=== PATIENT | male | born 1990 | race Caucasian/White ===

== ENCOUNTER 2017-11-13 06:55 | Day surgery (SDC) | payer BC ==
[~2017-11-13] VITALS: Ht 182.9 cm; Wt 79.4 kg
[~2017-11-13 06:55] MED LIST: ADDERALL 20 MG20 MG PO; CIPRO500 MG PO; CLINDAMYCIN HC300 MG PO; GABAPENTIN600 MG PO; KEFLEX250 MG PO; LEXAPRO20 MG PO; NORCO 5-325 TA1 EACH PO; PERCOCET 5-3251 EACH PO; RITALIN5 MG PO; TRAMADOL HCL50 MG PO
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
--- NOTE | 2017-11-19 13:25 | OR ---
[facility] [address], [place] [address] Signed DATE OF OPERATION: 11/13/2017 SURGEON: Michael Orellana MD PREOPERATIVE DIAGNOSIS: Displaced fracture, proximal phalanx, left long finger. POSTOPERATIVE DIAGNOSIS: Displaced fracture, proximal phalanx, left long finger. PROCEDURE: Open reduction and internal fixation. ANESTHESIA: Heavy sedation with digital block. SPECIMENS AND COMPLICATIONS: There were no specimens or complications. TOURNIQUET TIME: About 45 minutes. WHAT WAS DONE: The patient was brought to the operating room. After he was generously sedated, a digital block was performed with 0.25% Marcaine. The arm was exsanguinated and pneumatic tourniquet was elevated to 250 mmHg pressure. A straight dorsal approach was made beginning at the MCP joint and extending distally to the PIP joint on the dorsal aspect of the third finger. Skin was divided sharply. Subcutaneous tissue was bluntly spread. The extensor tendon was split in the midline and gently retracted. The fracture was then identified and gently reduced under direct vision. A 1.5 mm T-plate was then placed and two of the distal holes were cut off. We then placed it over the bone and checked position fluoroscopically and we were quite happy. We secured it proximally with several screws and distally with several screws. We then checked the rotational alignment of the finger which appeared to be excellent as did the fluoroscopic appearance on AP, lateral and oblique imagery. The wound was gently irrigated. The extensor tendon was closed with 5-0 nylon and the skin was then closed with 4-0 nylon. A sterile dressing was applied, over which a bulky hand dressing and a splint were placed. He was awakened to the recovery room where arrived in stable condition. Counts were correct and antibiotic protocols were followed. Electronically Signed By: MICHAEL ORELLANA MD 11/19/17 1325 PATIENT NAME: ARGELIA CROWE OPERATIVE REPORT DATE OF : 88 PHYSICIAN: MICHAEL ORELLANA MD REPORT #: [id number] REPORT IS CONFIDENTIAL AND NOT TO BE RELEASED WITHOUT AUTHORIZATION [address] [address] Signed Michael Orellana MD WFJuma/MODL /[id number] Electronically Signed By: MICHAEL ORELLANA MD 11/19/17 1325 PATIENT NAME: ARGELIA CROWE OPERATIVE REPORT DATE OF : 88 PHYSICIAN: MICHAEL ORELLANA MD REPORT #: [id number] REPORT IS CONFIDENTIAL AND NOT TO BE RELEASED WITHOUT AUTHORIZATION
== END 2017-11-13 10:15 | disposition home or self-care (01) ==
LOC: DS 06:55 → OPS 06:55 → DS 08:15 → OPS 10:15 → DS 11:00
PROVIDERS: Orthopaedic Surgery
PROC: 0PSV04Z Reposition Left Finger Phalanx with Internal Fixation Device, Open Approach (ICD-10-PCS; principal; 2017-11-13 08:15)
DX: S62.613A Displaced fracture of proximal phalanx of left middle finger, initial encounter for closed fracture (principal); X58.XXXA Exposure to other specified factors, initial encounter; Z79.899 Other long term (current) drug therapy
CPT/HCPCS: 01830; 73120; C1713; J0690; J2250; J2405; J2704; J3010; J7120

== ENCOUNTER 2022-08-25 20:36 | Emergency (ER) | payer OTHER ==
[~2022-08-25] VITALS: Ht 182.9 cm; Wt 95.3 kg
== END 2022-08-25 22:14 | disposition home or self-care (01) ==
LOC: ED 20:36
DX: S91.332A Puncture wound without foreign body, left foot, initial encounter (principal); Z23 Encounter for immunization; W22.8XXA Striking against or struck by other objects, initial encounter; F17.200 Nicotine dependence, unspecified, uncomplicated
CPT/HCPCS: 90471; 90715; 99283-25

== ENCOUNTER 2025-03-09 13:06 | Emergency (ER) | payer OTHER ==
[~2025-03-09] VITALS: Ht 182.9 cm; Wt 119.6 kg
[~2025-03-09 13:06] MED LIST changes: +PENICILLIN V P500 MG PO; +ondansetron HCL 4 MG/2 ML VIAL IV ONE
[2025-03-09] MEDS ORDERED: ondansetron HCL 4 MG/2 ML VIAL IV ONE (13:10)
[2025-03-09] MEDS ORDERED: SODIUM CHLORIDE 0.9% 1,000 ML IV PRN ×2 (13:10→13:15)
[2025-03-09] MEDS ORDERED: fentaNYL citrate 100 MCG/2 ML VIAL IV ONE ×3 (13:10→14:00)
[2025-03-09] MEDS ORDERED: LIDOCAINE 2% VISCOUS 6 ML SYR TOP ONE (13:15)
[2025-03-09] MEDS ORDERED: CEFAZOLIN SODIUM 2 GM/20 ML SYR IV ONE ×2 (13:15)
[2025-03-09] MEDS ORDERED: TETANUS-DIPHTHERIA TOXOIDS/PF 0.5 ML VIAL IM ONE (13:15)
[2025-03-09] MEDS ORDERED: MIDAZOLAM HCL 2 MG/2 ML VIAL IV ONE ×2 (13:15→13:20)
[2025-03-09] MEDS ORDERED: DIPHTH,PERTUSS(ACELL),TET VAC 0.5 ML SYRINGE IM ONE (13:15)
[2025-03-09] MEDS ORDERED: ROCURONIUM BROMIDE 50 MG/5 ML SYR IV ONE (13:20)
[2025-03-09] MEDS ORDERED: SUCCINYLCHOLINE CHLORIDE 20 MG/ML MDV IV ONE (13:20)
[2025-03-09] MEDS ORDERED: ETOMIDATE 40 MG/20 ML VIAL IV ONE (13:20)
[2025-03-09 13:24] LABS: BASOPHILS 0.3 % (0-2); EOSINOPHILS 1.9 % (0-6); HEMATOCRIT 44.2 % (35.0-50.0); HEMOGLOBIN 15.3 g/dL (12.0-18.0); LYMPHOCYTES 37.9 % (24-44); MCH 31.2 (27-36); MCHC 34.7 g/dl (30-36); MCV 89.9 fl (81-99); MONOCYTES 6.9 % (0-12); PLATELET COUNT 376 K/uL (140-440); RBC 4.91 M/ul (4.3-5.7); RDW 13.1 (10.5-15.0)
[2025-03-09] MEDS ORDERED: MIDAZOLAM HCL 100 MG in DEXTROSE 5% 80 ML IV SCH (13:30)
[2025-03-09] MEDS ORDERED: propofoL 100 ML IV ONE ×2 (13:31→14:14)
[2025-03-09 13:33] LABS: ALBUMIN 3.7 g/dL (3.4-5.0); ALBUMIN/GLOBULIN RATIO 1.03 (1.1-2.4); ALCOHOL, MEDICAL <3 ng/dL (<3); ALKALINE PHOSPHATASE 94 U/L (46-116); ALT (SGPT) 44 U/L (14-59); ANION GAP 8.1 (7-21); AST (SGOT) 25 U/L (15-37); BILIRUBIN, TOTAL 0.4 mg/dL (0.2-1.0); CALCIUM 9.1 mg/dL (8.5-10.1); CARBON DIOXIDE 28 mmol/L (21-32); CHLORIDE 105 mmol/L (98-107); CREATINE KINASE 129 U/L (39-308); CREATININE, SERUM 0.98 mg/dL (0.70-1.30); GLOMERULAR FILTRATION RATE,EST 103 mL/min (>60); POTASSIUM 4.1 mmol/L (3.5-5.1); PROTEIN, TOTAL 7.3 g/dL (6.4-8.2); UREA NITROGEN 15 mg/dL (7-18)
[2025-03-09] MEDS ORDERED: fentaNYL citrate 100 MCG/2 ML VIAL ONE (13:44)
[2025-03-09] MEDS ORDERED: FENTANYL CITRATE-0.9 % NACL/PF 100 ML IV SCH (13:45)
[2025-03-09] MEDS ORDERED: propofoL 100 ML IV SCH ×2 (13:45→14:15)
[2025-03-09 13:52] LABS: ABO O; ANTIBODY SCREEN NEGATIVE; RH NEGATIVE
[2025-03-09] MEDS ORDERED: KETAMINE in NS 50 MG/5 ML SYR ONE (13:53)
[2025-03-09] MEDS ORDERED: KETAMINE HCL 500 MG/5 ML MDV ONE (13:58)
[2025-03-09] MEDS ORDERED: KETAMINE in NS 50 MG/5 ML SYR IV ONE (14:00)
[2025-03-09 14:40] VITALS: BP 151/99
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
[2025-03-10] MEDS ORDERED: KETAMINE in NS 50 MG/5 ML SYR IV ONE (11:45)
== END 2025-03-09 14:40 | disposition short-term general hospital (02) ==
LOC: ED 13:06
PROVIDERS: Emergency Medicine
DX: S02.40DB Maxillary fracture, left side, initial encounter for open fracture (principal); S02.42XB Fracture of alveolus of maxilla, initial encounter for open fracture; S02.85XB Fracture of orbit, unspecified, initial encounter for open fracture; S02.609B Fracture of mandible, unspecified, initial encounter for open fracture; F17.200 Nicotine dependence, unspecified, uncomplicated
CPT/HCPCS: 31500; 36415; 70250; 70450; 70486; 70496; 70498; 71045; 72125; 80053; 80307; 82550; 82803; 83605; 85025; 86850; 86900; 86901; 90471; 90715; 94799; 99285-25; G0480; J0690; J2405; J2704; J3010; J3490; J7030; Q9967

== ENCOUNTER 2025-03-27 18:57 | Emergency (ER) | payer OTHER ==
[~2025-03-27] VITALS: Ht 182.9 cm; Wt 109.6 kg
[~2025-03-27 18:57] MED LIST changes: -ondansetron HCL 4 MG/2 ML VIAL IV ONE
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
[2025-03-27] MEDS ORDERED: OXYCODONE HCL5 MG PO (19:13)
[2025-03-27] MEDS ORDERED: TYLENOL EXTRA500 MG PO (19:14)
[2025-03-27] MEDS ORDERED: SEROQUEL25 MG PO (19:14)
[2025-03-27] MEDS ORDERED: fentaNYL citrate 100 MCG/2 ML VIAL IV ONE (19:45)
[2025-03-27 20:19] LABS: EOSINOPHILS 0.9 % (0-6); HEMATOCRIT 37.6 % (35.0-50.0); HEMOGLOBIN 13.1 g/dL (12.0-18.0); LYMPHOCYTES 18.9 % (24-44); MCH 30.8 (27-36); MCHC 34.9 g/dl (30-36); MCV 88.4 fl (81-99); MONOCYTES 7.2 % (0-12); PLATELET COUNT 646 K/uL (140-440); RBC 4.26 M/ul (4.3-5.7); RDW 12.5 (10.5-15.0)
[2025-03-27 20:33] LABS: ALBUMIN 3.6 g/dL (3.4-5.0); ALBUMIN/GLOBULIN RATIO 0.82 (1.1-2.4); ANION GAP 13.9 (7-21); BILIRUBIN, TOTAL 0.4 mg/dL (0.2-1.0); BUN/CREATININE RATIO 12.37 (6.0-28.6); CALCIUM 9.2 mg/dL (8.5-10.1); CREATININE, SERUM 0.97 mg/dL (0.70-1.30); POTASSIUM 3.9 mmol/L (3.5-5.1)
[2025-03-27 20:40] LABS: BILIRUBIN, URINE NEGATIVE (negative); BLOOD/HGB, URINE NEGATIVE (Negative); KETONE, URINE TRACE (Negative); LEUK ESTERASE, URINE NEGATIVE (negative); NITRITE, URINE NEGATIVE (negative)
[2025-03-27] MEDS ORDERED: CARAFATE1 GM PO (22:10)
[2025-03-27] MEDS ORDERED: PROTONIX20 MG PO (22:10)
[2025-03-27] MEDS ORDERED: LANSOPRAZOLE 30 MG TABDIS PT ONE (22:15)
[2025-03-27] MEDS ORDERED: LIDOCAINE & ANTACID 35 ML BTL PO ONE (22:15)
[2025-03-27] MEDS ORDERED: SUCRALFATE 1 GM TAB PT ONE (22:15)
[2025-03-27 22:27] VITALS: BP 132/92
== END 2025-03-27 22:50 | disposition home or self-care (01) ==
LOC: ED 18:57
PROVIDERS: Family Medicine
DX: K29.70 Gastritis, unspecified, without bleeding (principal); F17.200 Nicotine dependence, unspecified, uncomplicated
CPT/HCPCS: 36415; 74177; 80053; 81003; 83690; 85025; 96374; 99284-25; J3010; Q9967

== ENCOUNTER 2025-07-10 08:46 | Emergency (ER) | payer OTHER ==
[~2025-07-10] VITALS: Ht 182.9 cm; Wt 102.8 kg
[~2025-07-10 08:46] MED LIST changes: +CARAFATE1 GM PO; +OXYCODONE HCL5 MG PO; +PROTONIX20 MG PO; +SEROQUEL25 MG PO; +TYLENOL EXTRA500 MG PO
[2025-07-10] MEDS ORDERED: AMPHETAMINE SAL10 MG PO (09:05)
[2025-07-10] MEDS ORDERED: DEXTROAMP-AMPHE30 MG PO (09:05)
[2025-07-10] MEDS ORDERED: CEPHALEXIN500 MG PO (09:46)
[2025-07-10 09:57] VITALS: BP 111/68
== END 2025-07-10 09:57 | disposition home or self-care (01) ==
LOC: ED 08:46
DX: T81.49XA Infection following a procedure, other surgical site, initial encounter (principal); L03.115 Cellulitis of right lower limb; F17.200 Nicotine dependence, unspecified, uncomplicated; Z79.899 Other long term (current) drug therapy
CPT/HCPCS: 99282

== ENCOUNTER 2025-09-30 04:18 | Emergency (ER) | payer OTHER ==
[~2025-09-30] VITALS: Ht 182.9 cm; Wt 102.8 kg
[~2025-09-30 04:18] MED LIST changes: +AMPHETAMINE SAL10 MG PO; +CEPHALEXIN500 MG PO; +DEXTROAMP-AMPHE30 MG PO
[2025-09-30 05:24] LABS: BASOPHILS 1.5 % (0.2-1.2); EOSINOPHILS 4.9 % (0.8-7.0); LYMPHOCYTES 27.8 % (21.8-53.1); MCH 26.3 PG (25.7-32.2); MCHC 32.2 g/dL (32.3-36.5); MCV 81.7 fL (79.0-92.2); MONOCYTES 8.7 % (5.3-12.2); NEUTROPHILS 56.9 % (34.0-67.9); RBC 5.29 M/uL (4.63-6.08)
[2025-09-30 05:40] LABS: ALT (SGPT) 41.0 U/L (14-59); AST (SGOT) 21.0 U/L (15-37); GLOMERULAR FILTRATION RATE,EST 114.0 mL/min (>60); PROTEIN, TOTAL 7.8 g/dL (6.4-8.2); UREA NITROGEN 9.0 mg/dL (7-18)
[2025-09-30] MEDS ORDERED: DAPTOmycin 500 MG/10 ML VIAL IV ONE (06:45)
[2025-09-30] MEDS ORDERED: DAPTOmycin 500 MG/10 ML VIAL IV SCH (09:00)
[2025-09-30] MEDS ORDERED: CEPHALEXIN500 M1 PO (14:14)
[2025-09-30 14:25] VITALS: BP 109/72
== END 2025-09-30 14:27 | disposition home or self-care (01) ==
LOC: ED 04:18
PROVIDERS: Internal Medicine
DX: T81.49XA Infection following a procedure, other surgical site, initial encounter (principal); L03.115 Cellulitis of right lower limb; F17.200 Nicotine dependence, unspecified, uncomplicated; Z79.899 Other long term (current) drug therapy
CPT/HCPCS: 10005; 36415; 73701; 76881; 80053; 83735; 84550; 85025; 86140; J0878; Q9967